=== PATIENT | female | born 1990 | race Caucasian/White ===

== ENCOUNTER 2019-05-04 15:43 | Emergency (ER) | payer MEDICAID ==
[~2019-05-04] VITALS: Ht 162.6 cm; Wt 110.0 kg
[2019-05-04 15:54] VITALS: BP 125/75
[2019-05-04] MEDS ORDERED: ibuprofen 200mg tablet PO STA ×2 (16:48→17:02)
[2019-05-04] MEDS ORDERED: IBUP-1986 PO (16:55)
[2019-05-04] MEDS ORDERED: ACET-2006 PO (16:55)
[2019-05-04] MEDS ORDERED: L. R1CAP4 PO (16:55)
[2019-05-04] MEDS ORDERED: CLIN150C2 PO (16:55)
== END 2019-05-04 17:15 | disposition home or self-care (01) ==
LOC: ER 15:44
DX: K08.89 Other specified disorders of teeth and supporting structures (principal); Z88.8 Allergy status to other drugs, medicaments and biological substances; Z88.5 Allergy status to narcotic agent
CPT/HCPCS: 99283